=== PATIENT | female | born 1965 | race Two or more races ===

== ENCOUNTER 2016-08-04 10:51 | Emergency (ER) | payer OTHER ==
[2016-08-04 10:58] VITALS: BP 110/67; BMI 28.8
--- NOTE | 2016-08-04 11:24 | DR.GENAD ---
HPI - PCP Primary Care Physician: nfd - Complaint/Symptoms Chief Complaint Doctors Comments: Patient admits to symptoms since the AM Chief Complaint:: severe headace, cough, earache, body aches - Source History Provided: Patient - Mode of Arrival Mode of Arrival: Ambulatory - Timing Onset of Chief Complaint: 08/04/16 PMH - PMH Past Medical History: Yes Past Medical History Comment: chiari malformation Past Surgical History: Yes Surgical History: Hysterectomy - Family History History of Family Medical Conditions: No - Social History Does patient currently use any type of tobacco product: No Have you used tobacco products in the last 12 months: No Type of Tobacco Use: None Does any household member use tobacco: No Alcohol Use: None Do you use any recreational Drugs:: No Lives With: Family Lives Where: Home - infectious screening In the last 2 months have you had wt loss of >10#?: NO Have you had fever, night sweats or hemotysis?: No Have you traveled outside the country in the last 6 months?: No Isolation: Standard ROS - Review of Systems Constitutional: No Symptoms Reported Eyes: No Symptoms Reported ENTM: No Symptoms Reported Respiratoy: No Symptoms Reported Cardiovascular: No Symptoms Reported Gastrointestinal/Abdominal: No Symptoms Reported Genitourinary: No Symptoms Reported Neurological: Headache Musculoskeletal: No Symptoms Reported Integumentary: No Symptoms Reported Hematologic/Lymphatic: No Symptoms Reported Endocrine: No Symptoms Reported Psychiatric: No Symptoms Reported All Other Systems: Reviewed and Negative PE - Vital Signs Vitals: Temperature 98.4 F Pulse Rate 79 Respiratory Rate 16 Blood Pressure [Right Arm] 163/76 Blood Pressure 110/67 O2 Sat by Pulse Oximetry 98 - General Limitations: No Limitations General Appearance: Alert, In No Apparent Distress - Head Head Exam: Normal Inspection, Atraumatic - Eyes Eye exam: Normal Appearance - ENT ENT Exam: Normal Exam External Ear Exam: Normal External Inspection TM/Canal Exam: Bilateral Normal Nose Exam: Normal Nose Exam Mouth Exam: Normal Inspection Throat Exam: Normal Inspection - Neck Neck Exam: Normal Inspection - Chest Chest Inspection: Normal Inspection - Respiratory Respiratory Exam: Normal Lung Sounds Bilat Respiratory Exam: Bilateral Clear to Auscultation - Cardiovascular Cardiovascular Exam: Regular Rate, Normal Rhythm - Abdominal Exam Abdominal Exam: Normal Inspection, Normal Bowel Sounds Abdominal Tenderness: negative: RUQ, RLQ, LUQ, LLQ, Epigastrium, Suprapubic, Diffuse, Mild, Moderate, Severe, Other - Extremities Extremities Exam: Normal Inspection - Back Back Exam: Normal Inspection - Neurologic Neurological Exam: Alert, Oriented X3, CN II-XII Intact - Psychiatric Psychiatric Exam: Normal Affect - Skin Skin Exam: Warm, Dry Course - Reevaluation 1st: Improved ROR - Labs Reviewed Result Diagrams: 08/04/16 11:53 08/04/16 11:46 Laboratory: WBC 5.8 X10^3/uL (3.6-10.0) 08/04/16 11:53 RBC 4.81 X10^6/uL (3.5-5.4) 08/04/16 11:53 Hgb 13.5 g/dL (12.0-16.0) 08/04/16 11:53 Hct 39.9 % (36.0-47.0) 08/04/16 11:53 MCV 83.0 fL (80.0-100.0) 08/04/16 11:53 MCH 28.1 pg (27.0-34.0) 08/04/16 11:53 MCHC 33.9 g/dL (33.0-35.0) 08/04/16 11:53 RDW 14.2 % (11.6-16.5) 08/04/16 11:53 Plt Count 258 X10^3/uL (150.0-450.0) 08/04/16 11:53 MPV 7.4 fL (7.4-11.0) 08/04/16 11:53 Neut % 67.4 % (42.0-75.0) 08/04/16 11:53 Lymph % 23.6 % (21.0-51.0) 08/04/16 11:53 [place] % 8.0 % (0.0-13.0) 08/04/16 11:53 Eos % 0.3 % (0.9-2.9) L 08/04/16 11:53 Baso % 0.7 % (0.2-1.0) 08/04/16 11:53 Neut # 3.9 x10^3/uL (2.2-4.8) 08/04/16 11:53 Lymph # 1.4 X10^3/uL (1.3-2.9) 08/04/16 11:53 [place] # 0.5 x10^3/uL (0.3-0.8) 08/04/16 11:53 Eos # 0.0 x10^3/uL (0.0-0.2) 08/04/16 11:53 Baso # 0.0 X10^3/uL (0.0-0.1) 08/04/16 11:53 Absolute Nucleated RBC 0.0 /100WBC 08/04/16 11:53 Sodium 137 mmol/L (136-145) 08/04/16 11:46 Corrected Sodium TNP 08/04/16 11:46 Potassium 3.5 mmol/L (3.5-5.1) 08/04/16 11:46 Chloride 103 mmol/L (98-107) 08/04/16 11:46 Carbon Dioxide 24.6 mmol/L (21-32) 08/04/16 11:46 BUN 10 mg/dL (7-18) 08/04/16 11:46 Creatinine 0.49 mg/dL (0.55-1.02) L 08/04/16 11:46 Est GFR (MDRD) Af Amer > 60 (>60) 08/04/16 11:46 Est GFR (MDRD) Non-Af > 60 (>60) 08/04/16 11:46 Glucose 97 mg/dL (65-99) 08/04/16 11:46 Calcium 9.7 mg/dL (8.5-10.1) 08/04/16 11:46 Corrected Calcium TNP 08/04/16 11:46 Total Bilirubin 0.50 mg/dL (0.2-1.0) 08/04/16 11:46 AST 26 Units/L (15-37) 08/04/16 11:46 ALT 52 Units/L (12-78) 08/04/16 11:46 Alkaline Phosphatase 113 Units/L (46-116) 08/04/16 11:46 C-Reactive Protein 9.20 mg/L (0-3.0) H 08/04/16 11:46 Total Protein 7.9 g/dL (6.4-8.2) 08/04/16 11:46 Albumin 4.0 g/dL (3.4-5.0) 08/04/16 11:46 Globulin 3.9 g/dL (2.5-4.5) 08/04/16 11:46 Albumin/Globulin Ratio 1.0 Ratio (1.1-2.1) L 08/04/16 11:46 - XRAY XRAY Interpreted by: Radiologist (chest: no acute pulmonary disease) - Diagnosis Discharge Problem: Influenza-like illness - Discharge Plan Condition: Stable - Follow ups/Referrals Follow ups/Referrals: NFD,None [Primary Care Provider] - 3 days - Instructions
[2016-08-04] MEDS ORDERED: TORADOL 60 MG VIAL IM ONE (11:25)
[2016-08-04] MEDS ORDERED: TORADOL 60 MG VIAL ONE (11:31)
[2016-08-04 12:09] LABS: BASOPHILS % (AUTO) 0.7 % (0.2-1.0); EOSINOPHILS % (AUTO) 0.3 % (0.9-2.9); HEMATOCRIT 39.9 % (36.0-47.0); HEMOGLOBIN 13.5 g/dL (12.0-16.0); LYMPHOCYTES # (AUTO) 1.4 X10^3/uL (1.3-2.9); LYMPHOCYTES % (AUTO) 23.6 % (21.0-51.0); MEAN CORPUSCULAR HEMOGLOBIN 28.1 pg (27.0-34.0); MEAN CORPUSCULAR HGB CONC 33.9 g/dL (33.0-35.0); MEAN PLATELET VOLUME 7.4 fL (7.4-11.0); MONOCYTES # (AUTO) 0.5 x10^3/uL (0.3-0.8); NEUTROPHILS # (AUTO) 3.9 x10^3/uL (2.2-4.8); NEUTROPHILS % (AUTO) 67.4 % (42.0-75.0); PLATELET COUNT 258 X10^3/uL (150.0-450.0); RED BLOOD COUNT 4.81 X10^6/uL (3.5-5.4); RED CELL DISTRIBUTION WIDTH 14.2 % (11.6-16.5); WHITE BLOOD COUNT 5.8 X10^3/uL (3.6-10.0)
[2016-08-04 12:22] LABS: ALANINE AMINOTRANSFERASE 52 Units/L (12-78); ALKALINE PHOSPHATASE 113 Units/L (46-116); ASPARTATE AMINO TRANSFERASE 26 Units/L (15-37); BLOOD UREA NITROGEN 10 mg/dL (7-18); CALCIUM 9.7 mg/dL (8.5-10.1); CARBON DIOXIDE 24.6 mmol/L (21-32); CHLORIDE 103 mmol/L (98-107); CREATININE 0.49 mg/dL (0.55-1.02); GLUCOSE 97 mg/dL (65-99); SODIUM 137 mmol/L (136-145); TOTAL PROTEIN 7.9 g/dL (6.4-8.2); eGFR BLACK RACES > 60 (>60); eGFR NON BLACK RACES > 60 (>60)
--- NOTE | 2016-08-04 12:55 | RAD ---
HISTORY: Cough and congestion and fever Study: PA and lateral chest Comparison: May 19, 2016 Findings: The trachea is midline. The cardiac silhouette is unremarkable. The lungs are clear without focal infiltrate or effusion. The bony thorax is unremarkable. IMPRESSION: 1. No acute cardiopulmonary disease. Reported By:
== END 2016-08-04 13:19 | disposition home or self-care (01) ==
LOC: ER 10:51 → EDBD 10:51 → ER 13:19
DX: J11.1 Influenza due to unidentified influenza virus with other respiratory manifestations (principal)
CPT/HCPCS: 36415; 71020; 80053; 85025; 86140; 87502; 87503; 96372; 99282; 99283; J1885

== ENCOUNTER → 2017-05-05 | Outpatient (CLI) | payer OTHER ==
--- NOTE | 2017-05-05 17:59 | RAD ---
Examination: Left shoulder, four views History: Bilateral shoulder pain Findings: There is no evidence for recent injury, bone destruction, soft tissue calcification or nighat cular deformity. The humeral head is in normal position. Impression: No acute/significant pathology identified. Reported By:
--- NOTE | 2017-05-05 18:00 | RAD ---
Examination: Right shoulder, four views History: Bilateral pain Findings: There is mild degenerative narrowing of acromioclavicular and glenohumeral joints. No fract ure, bone destruction or soft tissue calcification. The humeral head is in normal position. Impression: No acute process. Mild osteoarthritis. Reported By:
== END | disposition home or self-care (01) | DRG 556 ==
LOC: RAD 17:03
PROVIDERS: ATTEND Specialist
DX: M25.511 Pain in right shoulder (principal); M25.512 Pain in left shoulder; M19.011 Primary osteoarthritis, right shoulder
CPT/HCPCS: 73030